=== PATIENT | female | born 1985 | race Caucasian/White ===

== ENCOUNTER 2023-08-21 09:23 | Emergency (ER) | payer BC, SELFPAY ==
[2023-08-21 09:29] VITALS: BP 126/82; PULSE 127; RESP 18; TEMP 37.7; O2SAT 97; BMI 31.4
--- NOTE | 2023-08-21 09:36 | ED_ITS ---
HPI - General Adult General Chief complaint: Unspecified Complaint, Adult Stated complaint: severe flu, headache, congestion Time Seen by Provider: 08/21/23 09:30 History of Present Illness HPI narrative: Patient is a 30 year white female who is largely healthy who presents with a fever, chills, body aches over the last couple of days. No production to her cough but she has had a slight dry cough as well. She has had no significant sore throat. She generally aches in her body. She has a sensitive stomach so is hesitant to take anti-inflammatories. She can take a day or 2 of Advil. She has been taking Tylenol. She did not have COVID immunizations or booster shots. Denies rigors, denies chest pain, denies shortness of breath. No leg swelling or edema, and no history of bleeding or clotting problems. Related Data Previous Rx's Medication Instructions Recorded nirmatrelvir 300 mg (150 mg See Rx Instructions PO .COMPLEX 08/21/23 x2)-ritonavir 100 mg tablet,dose #30 ea pack (Paxlovid) Allergies Allergy/AdvReac Type Severity Reaction Status Date / Time No Known Drug Allergies Allergy Verified 08/21/23 09:37 Review of Systems Status of ROS: Reports: 6 or more systems reviewed and unremarkable except as noted in History and below PFSH PFS Social History Smoking Status: Never smoker Do you use any of these nicotine containing products: None How often do you have a drink containing alcohol: never How often do you have six or more drinks on one occasion: Never AUDIT-C Alcohol total score: 0 Non-prescribed substance use: denies use Exam Narrative: Exam Narrative: Objective: Patient's vital signs look largely remarkable temp is a 100?. O2 sat is 97, pulse rate is slightly elevated 127, retested about 115. HEENT is unremarkable mouth clear throat clear neck is supple Chest is clear Heart pulses regular Extremities good perfusion Patient is ambulatory without difficulty. Const: Vital Signs, click to edit/add: Vital Signs - 24 hr 08/21/23 09:29 Temperature 100 F H Pulse Rate [Right Pulse Oximeter] 127 H Respiratory Rate 18 Blood Pressure [Ri ght Upper Arm] 126/82 Pulse Oximetry 97 Oxygen Delivery Me thod Room Air Course Vital Signs Vital signs: Initial Vital Signs Temperature 100 F H 08/21/23 09:29 Temperature Source Temporal Artery Scan 08/21/23 09:29 Pulse Rate 127 H 08/21/23 09:29 Pulse Rhythm Regular 08/21/23 09:29 Respiratory Rate 18 08/21/23 09:29 Blood Pressure 126/82 08/21/23 09:29 Blood Pressure Mean 96 08/21/23 09:29 Blood Pressure Position Semi-Fowlers 08/21/23 09:29 Pulse Oximetry 97 08/21/23 09:29 Oxygen Delivery Method Room Air 08/21/23 09:29 Vital Signs Temperature 100 F H 08/21/23 09:29 Pulse Rate 127 H 08/21/23 09:29 Respiratory Rate 18 08/21/23 09:29 Blood Pressure 126/82 08/21/23 09:29 Pulse Oximetry 97 08/21/23 09:29 Oxygen Delivery Method Room Air 08/21/23 09:29 Temperature 100 F H 08/21/23 09:29 Pulse Rate 127 H 08/21/23 09:29 Respiratory Rate 18 08/21/23 09:29 Blood Pressure 126/82 08/21/23 09:29 Pulse Oximetry 97 08/21/23 09:29 Oxygen Delivery Method Room Air 08/21/23 09:29 Medications Administered Medications: Discontinued Medications Generic Name Dose Route Start Last Admin Trade Name Freq PRN Reason Stop Dose Admin Ketorolac Tromethamine 10 mg 08/21/23 09:59 08/21/23 10:02 Ketorolac 10 Mg Tablet PO 08/21/23 10:00 10 mg ONCE ONE Administration Medical Decision Making [facility] Narrative Medical decision making narrative: [age] year white female with viral type illness body aches, dry cough, low-grade fever. Suspect COVID given the outbreak we have had in the community. The patient apparently did not get vaccinated. She is otherwise quite healthy. Does not short of breath. Her O2 sat is excellent 97%. She reports she is able to drink water and take oral foods. Will get her some studies including the viral studies. I do not think she needs an x-ray at this time. Will check a COVID/influenza/RSV. Disposition pending findings above. Addendum: The patient has positive COVID test. She is not hypoxic. He is mildly febrile. I think she would be a good candidate for Paxil of id she denies . She requests this will call that into her pharmacy. She will be able to start that tomorrow as they were closed today on . The patient also will be given some Avoca, she can take this as needed for discomfort. And loss of prescribe some Zofran for nausea. Update her regular doctor next couple of days, return to the ED as needed. Lab Data Labs: Lab Results 08/21/23 Range/Units 09:30 SARS-CoV-2 (PCR) POSITIVE SARS-CoV-2 A (Negative) Influenza Type A (PCR) Negative PCR FLU A (Negative) Influenza Type B (PCR) Negative PCR FLU B (Negative) RSV (PCR) Negative PCR RSV (Negative) Discharge Plan Discharge Clinical Impression: Acute viral syndrome, COVID-19 Patient Disposition: Home w/ Parent or Adult Condition: Stable Additional Instructions: Rest, fluids, observation, Tylenol as needed, thrown Advil or 2 as needed. Recommend light activity, off work until he feel well for a couple of days. Recheck with her regular doctor the next few days not improving, return to the ED sooner problems or concerns. Avoca as needed, do not use Tylenol with the Avoca. Paxlovid. Activity Level: Light activity Discharge Diet: Regular Prescriptions: New Paxlovid 300 mg (150 mg x 2)-100 mg tablets,dose pack See Rx Instructions .ROUTE .COMPLEX Qty: 30 0RF Rx Instructions: take TWO 150 mg tablets of nirmatrelvir with ONE 100 mg tablet of ritonavir twice daily for 5 days Stand Alone Forms: [employer] Info Instructions
[2023-08-21] MEDS: KETOROLAC 10 MG TABLET PO (10:02)
[2023-08-21 10:18] LABS: PCR FLU A Negative PCR FLU A (Negative); PCR FLU B Negative PCR FLU B (Negative); PCR RSV Negative PCR RSV (Negative); SARS PCR* POSITIVE SARS-CoV-2 (Negative)
--- NOTE | 2023-08-22 09:21 | ED.NURSE ---
[facility] unable to dispense paxlovid without GFR. [facility] and [facility] are able to dispense without GFR per [facility] pharmacist. called pt, no answer, message left for pt to find out where she wants prescription sent.
--- NOTE | 2023-08-22 10:36 | ED.NURSE ---
prescription for paxlovid called into [facility]
== END 2023-08-21 11:10 | disposition home or self-care (01) ==
PROVIDERS: Emergency Provider Family Medicine; PCP Physician Assistant Medical
DX: U07.1 COVID-19 (principal)
CPT/HCPCS: 87631; 99283; A9270